=== PATIENT | female | born 1975 | race Caucasian/White ===

== ENCOUNTER 2024-12-26 14:23 | Emergency (ER) | payer MEDICAID ==
[~2024-12-26] VITALS: Ht 162.6 cm; Wt 108.0 kg
--- NOTE | 2024-12-26 14:35 | Physician Documentation ---
History of Present Illness ~ Chief Complaint: Flank Pain Stated Complaint: KIDNEY PAIN Time Seen by MD: 17:18 HPI Patient is seen today with complaints of history of kidney stones and is presenting with similar pain with left-sided flank pain. Patient states her pain started last night. STATES SHE HAS A HARD TIME EMPTYING HER BLADDER. DENIES ANY VOMITING BUT REPORTS SEVERE LEFT FLANK PAIN. DENIES ANY FEVERS Day of Onset: Dec 26, 2024 Medication Reconciliation Allergies: Coded Allergies: No Known Allergies (Unverified , 12/26/24) Scheduled PRN Hydrocodone Bit/Acetaminophen 5/325 MG (Yale 5/325 MG), 1 TAB PO Q6H PRN for pain Review of Systems All Other Systems at this time: Reviewed and Negative ROS As stated above in the HPI, otherwise all systems are reviewed and negative. Constitutional: Denies: chills, fever, weakness Eyes: Denies: pain, blurred vision ENT: Denies: ear pain, nose pain, throat pain, mouth pain Respiratory: Denies: cough, shortness of breath Cardiovascular: Denies: chest pain, palpitations Gastrointestinal: Denies: abdominal pain, nausea, vomiting Genitourinary: Denies: burning, dysuria Female Genitalia: Denies: vaginal discharge, pelvic pain Neurological: Denies: headache, dizziness Musculoskeletal: Denies: pain, swelling Integumentary: Denies: rash, lesions Allergic/Immunologic: Denies: hives, itching Hematologic/Lymphatic: Denies: no symptoms reported Psychiatric: Denies: depression, anxiety Physical Exam Physical Exam General: Awake and Alert, no acute distress. Patient appears to be in a signi ficant amount of pain. Resp: Unlabored. Lungs clear to auscultation bilaterally. Heart: Regular Rate and rhythm, normal S1 and S2 without murmur, rub or gallop. Abdomen: Soft and non tender no organomegaly, PATIENT HAS POSITIVE FOR LEFT- SIDED CVA TENDERNESS Skin: Warm and Dry. Progress Results/Orders Results/Orders Completed Orders - GALLITO HERNANDEZ NP Ketorolac Trometh 30mg/Ml Vial (Toradol (12/26/24 19:10) Vital Signs 12/26/24 12/26/24 12/26/24 14:30 18:19 18:49 Temp 97.0 Pulse 98 81 Resp 18 18 18 B/P (MAP) 193/125 162/120 (134) Pulse Ox 99 97 O2 Flow Rate 0 Laboratory Tests Test 12/26/24 15:12 12/26/24 17:32 White Blood Count 7.6 Red Blood Count 5.37 Hemoglobin 15.7 Hematocrit 47.0 H Mean Corpuscular Volume 87.5 Mean Corpuscular Hemoglobin 29.2 Mean Corpuscular Hemoglobin Concent 33.4 Red Cell Distribution Width 14.2 Platelet Count 432 Mean Platelet Volume 8.6 Neutrophils (%) (Auto) 64.6 Lymphocytes (%) (Auto) 21.9 Monocytes (%) (Auto) 12.0 Eosinophils (%) (Auto) 1.0 Basophils (%) (Auto) 0.5 Neutrophils # (Auto) 4.9 Lymphocytes # (Auto) 1.7 Monocytes # (Auto) 0.9 Eosinophils # (Auto) 0.1 Basophils # (Auto) 0.0 CBC Comment Sodium Level 138 Potassium Level 4.9 Chloride Level 104 Carbon Dioxide Level 28.2 Anion Gap 6 L Blood Urea Nitrogen 16 Creatinine 1.12 H Estimated GFR/1.73 m2 52 BUN/Creatinine Ratio 14.3 Glucose Level 81 Calcium Level 9.1 Albumin 3.6 Lipase 24 Chemistry Comments Urine Specimen Description Cln catch midstream Urine Color Yellow Urine Clarity Slightly cloudy Urine pH 6.0 Urine Specific [place] 1.010 Urine Protein Negative Urine Glucose (UA) Negative Urine Ketones Negative Urine Occult Blood Small Urine Nitrite Negative Urine Bilirubin Negative Urine Urobilinogen 0.2 Urine Leukocyte Esterase Negative Urine RBC 0-2 Urine WBC 0-4 Urine Squamous Epithelial Cells Many Urine Bacteria 2+ Urine Culture Indicated Not ind Volume Urine Centrifuged 10 ml Urine HCG, Qualitative Negative Urine Comment Medical Decision Making Additional information obtaine: N/A Findings 49-year-old female was initially concerning for differentials including pyelonephritis, urinary tract infection kidney stone even small bowel obstruction. CT did not indicate any acute findings that would attribute to her right flank pain. Urinalysis showed no evidence of a UTI hematuria or white blood cell clumps. This time I feel comfortable discharging with after receiving a Toradol shot I will send her home with some Yale to help with pain. Suspect this is musculoskeletal however she may seek outpatient therapy for further evaluation. Urinary Diff Dx:Considerations: Include: AAA, , Aortic dissection, Appendicitis, Bowel obstruction, Cholelithiasis, Choleangitis, DJD, Ectopic , Hepatitis, HNP, Impaction, Intrauterine , Musculoskeletal pain, Ovarian torsion, Pancreatitis, PID, Post-Op complication, Pyelonephritis, Renal failure, Strain, Urinary Obstruction, Urolithiasis, Urinary retention, UTI, Vaginitis, Other Genital Diff Dx:Considerations: Unlikely: -Complete, - Incomplete, -Inevitable, Ablortion-Missed, -Threatened, Abruptio placentae, Bartholin abscess, Bartholin cyst, Blood loss anemia, Constipation, Cervicitis, Dsymenorrhea, Ectopic , Foreign body, Hormonal, Hidradenitis suppurativa, Intrauterine , Menorrhagia, Menometrorrhagia, Menstrual bleeding, Myomatous uterus, Perianal abscess, Physiologic discharge, Pinworms, PID, Placenta previa, , Precipitous Hct, Trauma, UTI, Vaginitis(osis)-Atrophic, Vaginitis, Vaginitis(osis)-Bacterial, Vaginitis(osis)- Candidal, Vaginitis(osis)-Contact, Vaginitis(osis)-Herpes, Vaginitis(osis)- Trich., Other Departure Disposition: HOME / SELF CARE / HOMELESS Impression: Primary Impression: Strain of lumbar region Additional Impression: Low back pain Condition: Improved Discharge Instructions: Lumbosacral Strain Referrals: NO PRIMARY CARE PROVIDER (PCP) Prescriptions Hydrocodone Bit/Acetaminophen 5/325 MG (Yale 5/325 MG) 5 Mg/325 Mg Tablet 1 TAB PO Q6H PRN for pain, #14 TAB Prov: GALLITO HERNANDEZ NP 12/26/24 Signature Scribe Signature: B Attestation: Scribed for Gallito Hernandez [employer] by Gallito Arevalo NP . 12/26/24 17:23 NATHAN DIAZ Dec 26, 2024 14:35 GALLITO HERNANDEZ NP Dec 26, 2024 17:25
[2024-12-26 15:32] LABS: MEAN PLATELET VOLUME 8.6 FL (7.4-10.4); RED CELL DISTRIBUTION WIDTH 14.2 % (11.5-14.5)
[2024-12-26 15:40] LABS: CREATININE 1.12 MG/DL (0.40-0.90); TOTAL CARBON DIOXIDE 28.2 MMOL/L (24-32); eCRCL 54 ML/MIN; eGFR 52 ML/MIN
--- NOTE | 2024-12-26 15:58 | RADIOLOGY REPORT ---
Indication: left flank pain Comparison: None Technique: Helical axial scans were performed through the abdomen and pelvis without intravenous contrast. Subsequently, coronal and sagittal reformations were obtained. Dose lowering techniques have been used including automated exposure control and adjustment of mA and/or kv according to patient size. FINDINGS: Limited evaluation of the vasculature and solid organs due to lack of intravenous contrast. LUNGS BASES: Clear LIVER: Normal noncontrast appearance of the liver SPLEEN: Normal GALLBLADDER: Normal PANCREAS: Normal ADRENAL GLANDS: Left adrenal thickening while maintaining its adreniform shape. KIDNEYS: No hydronephrosis or obstructing renal stone. GI: No bowel dilation or wall thickening. Normal appendix. LYMPH NODES: Normal VASCULAR STRUCTURES: Normal BLADDER: Normal PELVIC ORGAN: Normal FREE AIR OR FREE FLUID: None OSSEOUS STRUCTURES: Multilevel degenerative changes of the spine. SOFT TISSUES: Normal DLP is 1889.8 mGy-cm. CTDI vol is 35.1 mGy. IMPRESSION: 1. No hydronephrosis or obstructing renal stone. 2. Left adrenal thickening while maintaining its adreniform shape. 3. This is nonspecific and could be due to hyperplasia.
[2024-12-26 18:04] LABS: LEUKOCYTE ESTERASE ,URINE NEGATIVE (Neg); NITRITES, URINE NEGATIVE (Neg); OCCULT BLOOD,URINE SMALL (Neg)
[2024-12-26 18:05] LABS: URINE HCG NEGATIVE (NEG)
[2024-12-26 18:13] LABS: UA COLLECTION TYPE CLN CATCH MIDSTREAM
[2024-12-26 18:14] LABS: SQUAMOUS EPITHELIAL CELL,UR MANY /LPF (FEW)
[2024-12-26] MEDS ORDERED: HYDR-3965 PO (19:12)
[2024-12-26] MEDS: ketorolac trometh 30MG/ML vial 30 MG/ML VIAL IM ONE (19:30)
[2024-12-26 19:40] VITALS: BP 168/98; PULSE 92; RESP 19; TEMP 97; O2SAT 97
== END 2024-12-26 19:41 | disposition home or self-care (01) ==
LOC: ER 14:24
DX: S39.012A Strain of muscle, fascia and tendon of lower back, initial encounter (principal); Z87.442 Personal history of urinary calculi; X58.XXXA Exposure to other specified factors, initial encounter; Y93.89 Activity, other specified; Y92.89 Other specified places as the place of occurrence of the external cause; Y99.8 Other external cause status
CPT/HCPCS: 36415; 74176; 80048; 81001; 81025; 83690; 85025; 96372; 99285; J1885